=== PATIENT | male | born 1970 | race Caucasian/White ===

== ENCOUNTER 2016-07-31 13:41 | Emergency (ER) | payer OTHER ==
[~2016-07-31] VITALS: Ht 182.9 cm; Wt 137.4 kg
[~2016-07-31 13:41] MED LIST: AMLODIPINE BESYL5 MG PO; ASPIRIN PO; Azor 10/40 mg PO; BENICAR20 MG PO; BUTALBITAL PO; COUMADIN,JANTO7.5 MG PO; COUMADIN,JANTOVE5 MG PO; DIABETIC MEDS PO; DICLOFENAC SODI75 MG PO; ESGIC 50-325-41 EACH PO; FLEXERIL10 MG PO; GABAPENTIN600 MG PO; GLYBURIDE-METF1 EAC3 PO; LISINOPRIL40 MG PO; NAPROSYN500 MG PO; OXYCODONE20 MG PO; OXYCONTIN10 MG PO; OxyCODONE PO; OxyCONTIN PO; TOPAMAX100 MG PO; Tylenol Regular Stre PO; WARFARIN SODIUM2 MG PO; WARFARIN SODIUM5 MG PO; Zocor PO; [UNRECOGNIZED DRUG - OTHER] PO
[2016-07-31] MEDS ORDERED: TYLENOL WITH C1 EACH PO (17:25)
[2016-07-31 17:49] VITALS: BP 122/77
== END 2016-07-31 17:49 | disposition home or self-care (01) ==
LOC: EME 13:41
PROC: 0HQFXZZ Repair Right Hand Skin, External Approach (ICD-10-PCS; principal; 2016-07-31)
PROC: 3E0234Z Introduction of Serum, Toxoid and Vaccine into Muscle, Percutaneous Approach (ICD-10-PCS; principal; 2016-07-31)
DX: S61.210A Laceration without foreign body of right index finger without damage to nail, initial encounter (principal); W26.0XXA Contact with knife, initial encounter; Y93.G1 Activity, food preparation and clean up; I10 Essential (primary) hypertension; E11.9 Type 2 diabetes mellitus without complications; Z86.718 Personal history of other venous thrombosis and embolism; Z79.01 Long term (current) use of anticoagulants
CPT/HCPCS: 73140; 99281; 99283; S0020